=== PATIENT | male | born 2000 | race Hispanic/Latino ===

== ENCOUNTER 2024-11-05 17:08 | Emergency (ER) | payer SELFPAY ==
[~2024-11-05] VITALS: Ht 177.8 cm; Wt 90.7 kg
--- NOTE | 2024-11-05 17:30 | ERN ---
ED Note History of Present Illness Stated Complaint: SENT FROM [facility] Chief Complaint: Face Pain/Problem Time Seen by MD: 17:10 Time Seen by Midlevel: 17:10 Dictation: The Patient is a 24-year-old male with a history of bipolar who presents to the emergency department with a evaluation of jaw discomfort and locked jaw onset three days ago. Patient is currently a [facility] due to psychosis and aggression. According to medical staff at post [facility] patient was at [facility] on the 19 and was given multiple doses of Haldol. Patient was evaluated by psychologist today and was giving Benadryl IM 50 mg for EPS and had an x-ray taken to evaluate for dislocated jaw. Patient was able to ate normally this morning. Denies any other complaints. Allergies: Coded Allergies: No Known Drug Allergies (Unverified Allergy, Unknown, 11/05/24) Past Medical History RN Note Reviewed/Agreed w/[facility]: Yes Review of System Dictation Constitutional: Negative for fever,chills, and weight loss Eyes: Negative for injury, pain,redness, and discharge ENT: Negative for injury,pain or swelling positive for jaw pain Cardiovascular: Negative for chest pain, palpitations, and edema Respiratory: Negative for shortness of breath, cough, and wheezing, Abdomen/GI: Negative for abdominal pain, nausea, vomiting, diarrhea, and constipation Back: Negative for injury and pain : Negative for injury, bleeding and discharge MS/Extremity: Negative for injury and deformity Skin: Negative for rash, and discoloration Neuro: Negative for headache, weakness, numbness, tingling, and seizure Psych: Negative for suicide ideation, homicidal ideation, and hallucinations Initial Vital Sign VS Vital Signs Date Time Temp Pulse Resp B/P (MAP) Pulse Ox O2 Delivery O2 Flow Rate FiO2 11/05/24 17:12 98.2 92 18 154/97 96 Room Air 0 Physical Exam Dictation Vital Signs reviewed General Appearance: Alert, oriented x 3, no acute distress, well developed, nourished. Head and Face: non-traumatic. Eyes: PERRL, pink conjunctivas, eyelid no trauma, anterior chamber with arcus senilis. Ears: Pinnas intact and no signs of trauma or erythema ear canals clear and no discharge TM no erythema Nose: No discharge, no bleeding. Oropharynx: Mouth normal, tongue pink. pharynx clear,no erythema, tonsils no exudates, no abscesses noted, mucous membrane moist , range of motion to jaw, able to close mouth Neck: Supple, non-tender, no thyromegaly, no masses, no JVD, no bruits Breast:Deferred Chest:No tenderness, no crepitus, no paradoxical movement, no retractions Lungs:Clear, well-ventilated, symmetric, no rales, no wheezing, no rhonchi, no stridor, good breath sounds bilaterally Heart: Regular rate, regular rhythm, no murmur, no gallops Vascular: no peripheral edema, Abdomen: Soft, positive bowel sounds, nondistended, no guarding, nontender, no rebound, no masses no hepatomegaly, no splenomegaly, no Sharma's sign, no hernias. Rectal: Deferred Genital: Deferred Neurological: Normal speech, motor function intact, sensory function intact Musculoskeletal: Neck nontender, full range of motion, back nontender, full range of motion, Extremities: nontender, full range of motion Skin: Color pink, dry, no turgor, no rash, no lacerations, no abrasions, no contusions. Lymphatic: Deferred Results (Laboratory/Radiology) Labs Reviewed?: Yes ED Course ED Course Orders Procedure Category Date Status Time Benztropine 0.5mg Tab PHA 11/05/24 In Process (Cogentin 0.5mg Ta 17:30 Diphenhydramine Hcl PHA 11/05/24 Complete (Benadryl Inj) 17:30 Current Medications Medications (Trade) Dose Ordered Sig/Sin Route PRN Reason Start Time Stop Time Status Last Admin Dose Admin Benztropine Mesylate (Cogentin 0.5mg Tab) 2 mg ONCE PO 11/05/24 17:30 12/05/24 17:29 11/05/24 18:05 Diphenhydramine HCl (BENAdryl INJ) 50 mg ONCE ONCE IM 11/05/24 17:30 11/05/24 17:37 DC 11/05/24 18:04 Vital Signs Date Time Temp Pulse Resp B/P (MAP) Pulse Ox O2 Delivery O2 Flow Rate FiO2 11/05/24 17:12 98.2 92 18 154/97 96 Room Air 0 Medical Decision Making MDM The Patient is a 24-year-old male with a history of bipolar who presents to the emergency department with a evaluation of jaw discomfort and locked jaw onset three days ago. Patient is currently a [facility] due to psychosis and aggression. According to medical staff at [facility] patient was at [facility] on the 19 and was given multiple doses of Haldol. Patient was evaluated by psychologist today and was giving Benadryl IM 50 mg for EPS and had an x-ray taken to evaluate for dislocated jaw. Patient was able to ate normally this morning. Denies any other complaints. Patient reassessed does after medication administration. Patient able to fully completely close jaw, full range of motion to jaw. Able to talk in full complete sentences. Reports improve him. He will be discharged to follow up PCP patient no acute distress,, calm and cooperative Differential diagnosis: EPS, dislocated jaw, muscle spasm Need for hospitalization: Patient does not meet criteria for hospitalization. There are no social concerns with this patient. DX & DISP Disposition: Discharge Departure Impression: Primary Impression: Extrapyramidal symptom Condition: Stable Additional Instructions: FOLLOW-UP WITH PRIMARY CARE PROVIDER IN 1 TO 2 DAYS. TAKE MEDICATIONS DIRECTED HERE IN THE EMERGENCY ROOM. OKAY TO CONTINUE HOME MEDICATIONS UNLESS OTHERWISE DISCUSSED DURING YOUR VISIT IN THE EMERGENCY ROOM TODAY. RETURN TO YOUR NEAREST EMERGENCY ROOM IF SYMPTOMS WORSEN OR IF THERE IS NO IMPROVEMENT. CALL 911 IF YOU NEED IMMEDIATE ASSISTANCE. TAKE TYLENOL [id number] NEEDED AND IF NO CONTRAINDICATIONS ARE PRESENT. INCREASE ORAL HYDRATION. A WOUND CULTURE OR URINE CULTURE WAS ORDERED HERE IN THE EMERGENCY ROOM DEPARTMENT PLEASE FOLLOW-UP WITH PRIMARY CARE PROVIDER AND ADVISE THEM TO GET REPEAT PORTS FROM OUR FACILITY. IF YOU HAD ANY GRACIE WRAP/SPLINTS THAT WERE APPLIED HERE, PLEASE DO NOT REMOVE THEM UNTIL YOU SEE YOUR PRIMARY CARE OR SPECIALTY. Time of Disposition: 18:26 I have reviewed the case, and I agree with, Diagnosis and Plan LATHA DICK Nov 05, 2024 17:30
[2024-11-05] MEDS: DiphenhydrAMINE HCL 50 MG/ML VIAL IM ONE (18:04)
[2024-11-05] MEDS: BENZTROPINE 0.5MG TAB PO SCH (18:05)
[2024-11-05 18:40] VITALS: BP 146/88; PULSE 88; RESP 18; TEMP 98.3; O2SAT 98
== END 2024-11-05 18:43 | disposition home or self-care (01) ==
LOC: EDH 17:08
DX: G25.9 Extrapyramidal and movement disorder, unspecified (principal); F31.9 Bipolar disorder, unspecified
CPT/HCPCS: 99283; 96372; J1200